=== PATIENT | male | born 1970 | race Caucasian/White ===

== ENCOUNTER 2024-02-16 10:11 | Emergency (ER) | payer OTHER, SELFPAY ==
[2024-02-16 10:12] VITALS: BP 139/94
[2024-02-16 10:53] LABS: % Basophils 0.2 % (0-2); % Eosinophils 0.6 % (0-6); % Immature Granulocytes 0.6 % (0-0.5); % Lymphocytes 10.8 % (20.5-51.1); % Monocytes 8.3 % (1.7-9.3); % Neutrophils 79.5 % (42.2-75.2); Absolute Eosinophils 0.1 10^3/uL (0-0.7); Absolute Immature Granulocytes 0.1 10^3/uL (0-0.05); Absolute Lymphocytes 1.7 10^3/uL (1.2-3.4); Absolute Monocytes 1.3 10^3/uL (0.1-0.6); Absolute Neutrophils 12.6 10^3/uL (1.4-6.5); Hematocrit 45.2 % (39.0-52.0); Hemoglobin 15.4 g/dL (13.0-18.0); Mean Corp Hgb Conc. 34.1 g/dL (33.0-37.0); Mean Corpuscular Hgb 29.1 pg (27.0-31.0); Mean Corpuscular Volume 85.4 fL (80.0-94.0); Mean Platelet Volume 9.3 fL (7.4-10.4); Nucleated Red Blood Cells % 0 % (-); Platelet Count 260 10^3/uL (130-400); Red Blood Cell Count 5.29 10^6/uL (4.70-6.10); White Blood Cell Count 15.9 10^3/uL (4.8-10.8)
--- NOTE | 2024-02-16 10:53 | ED.GENMED ---
History of Present Illness
General
Chief Complaint: Abdominal Pain
Source: patient
Exam Limitations: none
Time Seen by Provider: 02/16/24 10:40
Nursing documentation reviewed up to this point in time: agreed with
Travel History
Have you had any contact with someone who has COVID-19?: No
Do you have any symptoms of coronavirus? Fever > 100 degrees, chills, cough, shortness of breath, sore throat, loss of taste or smell, muscle aches, or headache?: No
History of Present Illness
History of Present Illness:
54-year-old male past medical history of hypertension GERD presenting to the emergency department today with concerns of intermittent discomfort to the left lower quadrant for the past 3 weeks with specific worsening over the past 24 hours. No
fevers no nausea vomiting no specific diarrhea or constipation.
Review of Systems
Review of Systems
Allergies reviewed?: Yes
All Other Systems: ROS reviewed and negative except as documented in HPI and ROS
Phy Exam
Physical Exam
Physical Exam:
GENERAL: Alert , in no apparent distress
EYE: pupils equal and reactive
NECK: Supple, no significant adenopathy.
ENT: o/p clr, mmm.
CARDIAC: Regular rate and rhythm .
LUNGS: Clear breath sounds bilaterally, no acute respiratory distress, no wheezes/rales/rhonchi
ABDOMEN: Left lower quadrant pain otherwise soft benign abdomen
NEUROLOGICAL: Alert and oriented, no focal neuro deficits
SKIN: Warm and dry, skin intact.
MUSCULOSKELETAL: No edema, well perfused.
PSYCH: Normal and appropriate interaction.
Course
Orders/Labs/Results
Orders:
Orders
02/16/24 10:46
CT Abd/Pel (IV only)-[facility] only Urgent
Comment:
Reason For Exam: llq pain
02/16/24 10:47
Complete Blood Count/With Diff Urgent
Comprehensive Metabolic Panel Urgent
Lipase Urgent
02/16/24 11:19
Urinalysis Reflex To Culture Urgent
Date Specimen was Collected: 02/16/24
Time Specimen was Collected: 11:17
02/16/24 14:21
Amoxicillin 875 mg/Clav 125 mg [Augmentin 875 mg/125 mg] 1 tablet PO NOW STA
Abnormal Lab Results
02/16/24
10:47
WBC 15.9 H 10^3/uL
(4.8-10.8)
Abs Immat Gran (auto) 0.1 H 10^3/uL
(0-0.05)
Absolute Neuts (auto) 12.6 H 10^3/uL
(1.4-6.5)
Absolute Monos (auto) 1.3 H 10^3/uL
(0.1-0.6)
Immature Gran % 0.6 H %
(0-0.5)
Neutrophils % 79.5 H %
(42.2-75.2)
Lymphocytes % 10.8 L %
(20.5-51.1)
02/16/24 10:47
02/16/24 10:47
Vital Signs
Initial and Last Documented VS:
Initial Vital Signs
Temp Pulse Resp BP Pulse Ox
98.1 F 90 18 139/94 97
02/16/24 10:12 02/16/24 10:12 02/16/24 10:12 02/16/24 10:12 02/16/24 10:12
Last Documented Vital Signs
Temp Pulse Resp BP Pulse Ox
98.1 F 74 18 136/70 99
02/16/24 10:12 02/16/24 12:53 02/16/24 12:53 02/16/24 12:53 02/16/24 12:53
MDM/Problems Addressed
MDM/Problems Addressed:
54-year-old male presenting to the emergency department today left lower quadrant abdominal pain worsening over the past 24 hours had some degree of intermittent symptoms of the past few weeks. Denies any abdominal surgeries in the past arrival
here vital signs are normal. Initial white count of 15 CT scan showing evidence of localized diverticulitis without signs of complication. This sounds a complication plan for outpatient management and close outpatient follow-up. Return
precautions given. .[address] scan for further assessment of the left lower quadrant.
*Critical Care Note
Total Time (30-74mins, 75-104mins- exclusive of procedures): Not Applicable
ED Attending Note
-
Portions of this chart may have been created with voice recognition software.� Occasional wrong word or��sound alike� substitutions may have occurred due to the inherent limitations of voice recognition software.
Discharge Plan
Departure
Patient Disposition: Home (Routine Discharge)
Date of Disposition: 02/16/24
Time of Disposition: 14:22
Patient with high blood pressure during this ER visit?: No
Condition: Good
Covid-19: Not Applicable
Discharge Problem:
Diverticulitis
Instructions: Diverticulitis (DC)
Prescriptions:
New
amoxicillin-pot clavulanate 875-125 mg tablet
1 tab PO BID 7 Days Qty: 14 0RF
No Action
lisinopril 10 MG tablet
10 mg PO HS
omeprazole 20 MG capsule,delayed release(DR/EC)
20 mg PO HS
Referrals:
Gena Adame CRNP [Family Provider] -
Desean Crystal MD [Active] - Follow up in 10 days
Activity Restrictions/Additional Instructions:
You came to the emergency department today with concerns of left lower quadrant abdominal pain. You are found to have diverticulitis. Please take Augmentin twice daily for the next 7 days and follow close with the primary care doctor for
reassessment. Can also take Motrin and slowly advance her diet over the next few days. Return to the emergency department for any worsening, new or concerning symptoms.
Interventions
Interventions:
*Risk Screen - Suicide Last Done: 02/16/24 10:44
*General Assessment Last Done: 02/16/24 10:44
*Neglect/Abuse Screening Last Done: 02/16/24 10:44
*ED COVID-19 Vaccine History Last Done: 02/16/24 10:44
XK-Cicgbh-Uoqicfmiaw Assessment Last Done: 02/16/24 10:44
[2024-02-16 11:06] LABS: ALT (SGPT) 29 U/L (0-50); AST (SGOT) 24 U/L (17-59); Albumin 4.5 g/dl (3.5-5.0); Alkaline Phosphatase 73 U/L (38-126); Blood Urea Nitrogen 10 mg/dl (9-20); Calcium 9.1 mg/dl (8.4-10.2); Carbon Dioxide 29 mmol/L (22-30); Chloride 105 mmol/L (98-107); Estimated Creatinine Clearance 122 ml/min; Glucose 94 mg/dl (70-99); Lipase 50 U/L (23-300); Sodium 139 mmol/L (135-145); Total Bilirubin 1.2 mg/dl (0.2-1.3); Total Protein 6.9 g/dl (6.3-8.2); eGFR > 60.00
[2024-02-16 11:37] LABS: Urine Albumin Negative (Neg - Trace); Urine Bilirubin Negative (Negative); Urine Character Clear (Clear); Urine Color Yellow; Urine Glucose Negative (Negative); Urine Ketone Negative (Negative); Urine Leukocyte Negative (Negative); Urine Nitrite Negative (Negative); Urine Occult Blood Negative (Negative); Urine Urobilinogen Negative (Neg - 1+); Urine pH 6.5 (5.0-9.0)
[2024-02-16 12:53] VITALS: BP 136/70
[2024-02-16] MEDS: AUGMENTIN 875 MG/125 MG 1 TABLET PO (14:31)
== END 2024-02-16 14:58 | disposition home or self-care (01) ==
LOC: EMR 10:11
PROVIDERS: Physician Assistant; EMERGENCY PHYSICIAN Emergency Medicine; FAMILY PHYSICIAN Nurse Practitioner Primary Care
DX: K57.92 Diverticulitis of intestine, part unspecified, without perforation or abscess without bleeding (principal)
CPT/HCPCS: 99285; 74177; 80053; 81003; 83690; 85025; Q9967

== ENCOUNTER → 2024-02-18 19:24 | Outpatient (REF) | payer OTHER, SELFPAY | LOC: RAD 19:24 | PROVIDERS: ATTENDING PHYSICIAN Nurse Practitioner Family | DX: M54.41 Lumbago with sciatica, right side (principal) | CPT/HCPCS: 72110 ==

== ENCOUNTER → 2024-05-04 07:41 | Outpatient (REF) | payer OTHER, SELFPAY | LOC: EMG 07:41 | PROVIDERS: ATTENDING PHYSICIAN Nurse Practitioner Primary Care | DX: G62.9 Polyneuropathy, unspecified (principal); R20.0 Anesthesia of skin | CPT/HCPCS: 95886; 95913 ==

== ENCOUNTER → 2024-05-30 18:01 | Outpatient (REF) | payer OTHER, SELFPAY | LOC: PAVMRI 18:01 | PROVIDERS: ATTENDING PHYSICIAN Nurse Practitioner Primary Care | DX: M51.16 Intervertebral disc disorders with radiculopathy, lumbar region (principal) | CPT/HCPCS: 72148 ==